=== PATIENT | male | born 2000 | race African-American/Black ===

== ENCOUNTER 2020-08-28 02:20 | Emergency (ER) | payer SELFPAY ==
[2020-08-28] MEDS ORDERED: LORAZEPAM 2MG/ML CPJ ONE (03:00)
[2020-08-28] MEDS ORDERED: OLANZAPINE 10 MG/VIAL IM ONE (03:00)
[2020-08-28] MEDS ORDERED: DIPHENHYDRAMINE 50MG/ML VIAL ONE (03:00)
[2020-08-28 06:43] LABS: BASOPHILS % 0.5 % (0.0-2.0); EOSINOPHILS % 0.5 % (0.0-5.0); HEMATOCRIT. 45.8 % (42.0-52.0); HEMOGLOBIN. 15.5 g/dL (14.0-18.0); LYMPHOCYTES % 16.1 % (20.0-50.0); MEAN CORPUSCULAR HEMOGLOBIN 29.6 pg (28.0-32.0); MEAN CORPUSCULAR VOLUME 87.7 fL (80.0-94.0); MEAN PLATELET VOLUME 10.6 fl (7.4-10.4); MONOCYTES % 5.7 % (2.0-8.0); NEUTROPHILS % 77.2 % (40.0-76.0); PLATELET 146 x1000/uL (130-400); RED BLOOD CELL COUNT 5.22 mill/uL (4.7-6.1)
[2020-08-28 06:46] LABS: CHLORIDE 105 mEq/L (98-107)
[2020-08-28 09:48] VITALS: BP 132/71
== END 2020-08-28 09:55 | disposition home or self-care (01) ==
LOC: ER 02:20 → EDBD 02:20 → ER 06:12
DX: F23 Brief psychotic disorder (principal); F91.8 Other conduct disorders; Z78.1 Physical restraint status
CPT/HCPCS: 36415; 80053; 80320; 85025; 99285; J1200; J2060; J3490; G0480